=== PATIENT | female | born 1980 | race American Indian/Alaskan Native ===

== ENCOUNTER 2018-04-08 10:13 | Day surgery (SDC) | payer MEDICARE ==
[~2018-04-08 10:13] MED LIST: ANCEF/STERILE WATER 2 GM/20 ML 2 GM/20 ML SYRINGE IV NR; NACL 0.9% 1000 ML 1,000 ML IV SCH
[2018-04-08 11:09] LABS: Basophils # (Auto) 0.1 K/mm3 (0.0-0.1); Basophils % (Auto) 1.3 % (0.0-1.8); Eosinophils # (Auto) 0.2 K/mm3 (0.0-0.4); Eosinophils % (Auto) 3.4 % (0.0-4.3); Hematocrit 38.6 % (30.3-42.9); Lymphocytes # (Auto) 1.2 K/mm3 (1.2-5.4); Lymphocytes % (Auto) 23.7 % (13.4-35.0); Mean Corpuscular HGB Conc 34 % (30-34); Mean Corpuscular Volume 98 fl (79-97); Monocytes # (Auto) 0.4 K/mm3 (0.0-0.8); Monocytes % (Auto) 7.9 % (0.0-7.3); Platelet Count 151 K/mm3 (140-440); Red Blood Count 3.94 M/mm3 (3.65-5.03); Red Cell Distribution Width 12.9 % (13.2-15.2)
--- NOTE | 2018-04-08 11:23 | Anesthesia Day of Surgery ---
Anesthesia Day of Surgery - Day of Surgery Patient Examined: Yes Patient H&P Reviewed: Yes Patient is NPO: Yes
[2018-04-08 11:25] LABS: Calcium 9.4 mg/dL (8.4-10.2)
--- NOTE | 2018-04-08 11:33 | Anesthesia Consultation ---
Anesthesia Consult and Med Hx Date of service: 04/08/18 - Airway Anesthetic Teeth Evaluation: Good ROM Head & Neck: Adequate Mental/Hyoid Distance: Adequate Mallampati Class: Class IV Intubation Access Assessment: Possibly Difficult (Poor mouth opening) - Pre-Operative Health Status ASA Pre-Surgery Classification: ASA3 Proposed Anesthetic Plan: General - Pulmonary Hx Smoking: Yes Hx Asthma: No COPD: No Hx Pneumonia: No - Cardiovascular System Hx Hypertension: Yes Hx Valvular Heart Disease: Yes (Pt poor historian. ? MR) Hx Heart Murmur: Yes - Central Nervous System Hx Psychiatric Problems: Yes - Endocrine Hx Renal Disease: Yes (? etiology) Hx End Stage Renal Disease: Yes (MWF HD; Last HD yesterday; couldn't complete full session) Hx Thyroid Disease: Yes Hx Hypothyroidism: Yes Hx Hyperthyroidism: Yes (states "comes and goes") - Other Systems Hx Alcohol Use: Yes (Occas) Hx Cancer: No
[2018-04-08] MEDS: VERSED IV NR ×2 (12:09→14:18)
[2018-04-08] MEDS ORDERED: HEPARIN 10,000 UNITS/10 ML ONE ×2 (12:10→17:19)
[2018-04-08] MEDS ORDERED: MARCAINE-EPI 0.5%-1:200,000 INFILTRATI ONE ×2 (12:10→17:05)
[2018-04-08] MEDS ORDERED: NACL 0.9% 500 ML 500 ML ONE (12:11)
[2018-04-08] MEDS ORDERED: GELFOAM TP ONE ×2 (12:12→17:05)
[2018-04-08] MEDS ORDERED: THROMBIN (BOVINE) TP ONE (12:12)
[2018-04-08] MEDS ORDERED: DILAUDID ONE ×2 (14:40→16:29)
[2018-04-08] MEDS ORDERED: DIPRIVAN 10 MG/ML IV ONE ×2 (14:40→16:28)
[2018-04-08] MEDS ORDERED: XYLOCAINE MPF 2% ONE ×2 (14:40→16:29)
[2018-04-08] MEDS ORDERED: PAPAVERINE ONE (14:59)
[2018-04-08] MEDS ORDERED: PROTAMINE SULFATE ONE (14:59)
[2018-04-08] MEDS ORDERED: RIFADIN ONE (15:00)
[2018-04-08] MEDS ORDERED: SUBLIMAZE ONE (16:21)
[2018-04-08] MEDS ORDERED: HEPARIN 10,000 UNITS/10 ML IV ONE (17:05)
[2018-04-08] MEDS ORDERED: THROMBIN SPRAYKIT (BOVINE) TP ONE (17:05)
--- NOTE | 2018-04-08 18:19 | Short Stay Summary ---
Short Stay Documentation Date of service: 04/08/18 - History H&P: obtained from office - Allergies and Medications Current Medications: Allergies metoclopramide HCl [From Reglan] Adverse Reaction (Verified 04/03/18 12:38) PANIC Home Medications Medication Instructions Recorded Confirmed Last Taken Type Gabapentin [Neurontin] 200 mg PO HS 04/03/18 04/03/18 04/07/18 History Sevelamer Carbonate [Renvela] 800 mg PO TIDWM 04/03/18 04/03/18 04/07/18 History Active Medications Cefazolin Sodium (Ancef/Sterile Water 2 Gm/20 Ml) 2 gm in 20 mls @ 80 mls/hr IV PREOP NR; Protocol Stop: 04/08/18 23:01 Sodium Chloride (Nacl 0.9% 1000 Ml) 1,000 mls @ 42 mls/hr IV DIRECT CAYDEN Last Admin: 04/08/18 10:55 Dose: 42 mls/hr Documented by: Midazolam HCl (Versed) 2 mg IV PREOP NR Stop: 04/08/18 23:59 Last Admin: 04/08/18 14:18 Dose: 2 mg Documented by: - Brief post op/procedure progress note Date of procedure: 04/08/18 Pre-op diagnosis: failing AVF left arm Post-op diagnosis: same Procedure: open revision and angioplasty of LUE AVF Anesthesia: GETA, local (1/2% Marcaine with epinephrine) Findings: Excellent thrill at the end of the case Surgeon: BERNADINE DAVIS Estimated blood loss: 50-100ml Pathology: none Condition: stable - Hospital course Hospital course: Benign - Disposition Condition at discharge: Good Short Stay Discharge Plan Activity: advance as tolerated Diet: advance as tolerated Wound: per your surgeon's advice Follow up with: BERNADINE DAVIS MD [Staff Physician] - 14 Days Prescriptions: HYDROcodone/APAP 5-325 [[place] 5/325] 1 each PO Q6HR PRN #30 tablet PRN Reason: Pain
--- NOTE | 2018-04-08 18:24 | Operative Report ---
Operative Report Operative Report: Date of procedure: 04/08/2018 Pre-operative diagnosis: Arteriovenous fistula, left upper arm Post-operative diagnosis: Same Procedure name(s): 1. Open revision of left upper extremity arteriovenous fistula with thrombectomy 2. Open balloon angioplasty of left upper extremity until venous fistula using 8 mm balloon Surgeon: Ruiz Wayne MD Motor Vehicle Examiner: None Anesthesia: Gen. With local supplementation using half percent Marcaine with epinephrine EBL: Less than 50 ml Operative indication: Patient is a 37-year-old woman with a 4-year-old left upper arm fistula that has a stent near the cannulation sites. The stent is crushed at its proximal aspect. The dialysis unit cannot access the fistula adequately. Findings: The stent was extracted in significant part although is well incorporated in a lot of it had to be left. The stenotic area around the stent was easily dilated. There were no technical defects noted at the end of the procedure. Procedure: This was placed on the table in the supine position. She was given appropriate anesthesia. The area over the left arm was prepped with ChloraPrep solution and draped in the usual sterile fashion. Half percent Marcaine with epinephrine was used to infiltrate the incision sites. Small incision was made in the upper arm to the shoulder over the fistula. Dissection was carried out to identify the fistula which was surrounded with a vessel loop. An incision was made just above the elbow along the tract of the fistula. The pseudoaneurysm was identified to this incision. The arterial inflow was surrounded with a vessel loop on the fistula. The patient was given 2000 units of intravenous heparin. 3 minutes were allowed to pass. The pseudoaneurysm site was opened on its inferior portion in true vein. Once inside the fistula, the stent was easily visible. The stent was then extracted using a hemostat until the point where no more stent material was visible in the lumen. A Matti catheter was then passed proximally to remove any thrombus in the upper body of the fistula. The site was then closed with 5-0 Prolene and flow started into the fistula with the development of an immediate thrill over the body of the fistula. The arterial side of the fistula was cannulated using micropuncture technique. Ultimately a 7 [place] sheath was placed. This was all done through the incision just above the elbow. Angiography revealed some narrowing around the residual portion of the stent but the rest of the fistula appeared to be widely patent. An 8 mm balloon was then used to dilate the cannulation sites as well as the now disrupted stent. There was an excellent technical result with a widely patent lumen throughout the fistula. The 7 [place] sheath was removed and the insertion site was closed with 5-0 Prolene. Closure was done of the wounds with 3-0 Vicryl in the subcutaneous tissue and 4- 0 Monocryl on the skin. Sterile dressings were applied. The patient tolerated the procedure well. She was taken from the operating room to the recovery room in stable condition. Sponge, needle, and instrument counts were reported as correct.
[2018-04-08] MEDS ORDERED: NORCO 5/325 PO PRN (18:36)
--- NOTE | 2018-04-08 18:51 | Post Anesthesia Evaluation ---
- Post Anesthesia Evaluation Patient Participated: Yes Airway Patent: Yes Stable Respiratory Function: Yes Nausea/Vomiting: No Temp > 96.8F: Yes Pain Manageable: Yes Adequeate Hydration: Yes (Dialysis patient) Anesthesia Complications: No Block Receding Appropriately: Not Applicable Patient on Ventilator: No
[2018-04-08 20:02] VITALS: BP 125/77
== END 2018-04-08 19:40 | disposition home or self-care (01) ==
LOC: OR 10:13
PROVIDERS: ATTEND Surgery Vascular Surgery
DX: T82.868A Thrombosis due to vascular prosthetic devices, implants and grafts, initial encounter (principal); I12.0 Hypertensive chronic kidney disease with stage 5 chronic kidney disease or end stage renal disease; N18.6 End stage renal disease; I48.91 Unspecified atrial fibrillation; K21.9 Gastro-esophageal reflux disease without esophagitis; E03.9 Hypothyroidism, unspecified; F32.9 Major depressive disorder, single episode, unspecified; F17.210 Nicotine dependence, cigarettes, uncomplicated; F41.9 Anxiety disorder, unspecified; Z72.89 Other problems related to lifestyle; Z90.49 Acquired absence of other specified parts of digestive tract; Z98.51 Tubal ligation status; Z98.890 Other specified postprocedural states; Z88.8 Allergy status to other drugs, medicaments and biological substances; Z79.899 Other long term (current) drug therapy; Z86.79 Personal history of other diseases of the circulatory system; Z83.3 Family history of diabetes mellitus; Y83.8 Other surgical procedures as the cause of abnormal reaction of the patient, or of later complication, without mention of misadventure at the time of the procedure; Y92.89 Other specified places as the place of occurrence of the external cause
CPT/HCPCS: 36415; 36833; 37246; 80048; 84703; 85025; A4649; C1725; C1757; J0690; J1170; J1644; J2250; J2440; J2704; J2720; J3010; J3490; J7030; J7040; Q9966

== ENCOUNTER 2019-02-13 03:42 | Emergency (ER) | payer MEDICARE ==
[2019-02-13 07:16] LABS: Basophils % (Auto) 0.3 % (0.0-1.8); Eosinophils % (Auto) 0.3 % (0.0-4.3); Hematocrit 34.4 % (30.3-42.9); Hemoglobin 11.4 gm/dl (10.1-14.3); Lymphocytes # (Auto) 1.2 K/mm3 (1.2-5.4); Lymphocytes % (Auto) 10.6 % (13.4-35.0); Mean Corpuscular HGB Conc 33 % (30-34); Mean Corpuscular Volume 100 fl (79-97); Monocytes # (Auto) 0.9 K/mm3 (0.0-0.8); Monocytes % (Auto) 8.3 % (0.0-7.3); Platelet Count 270 K/mm3 (140-440); Red Blood Count 3.46 M/mm3 (3.65-5.03); Red Cell Distribution Width 13.4 % (13.2-15.2)
[2019-02-13 07:39] LABS: Calcium 10.6 mg/dL (8.4-10.2)
--- NOTE | 2019-02-13 08:03 | Emergency Department Report ---
ED General Adult HPI - General Chief complaint: Wound/Laceration Stated complaint: POST ABDOMEN SURGERY/BLEEDING FROM SITE Time Seen by Provider: 02/13/19 06:09 Source: patient Mode of arrival: Ambulatory Limitations: No Limitations - History of Present Illness Initial comments: This is a 38-year-old female who is switching from hemodialysis to peritoneal dialysis. She had a PD catheter placed us today in the a.m. Today she awoke with bleeding apparent from the catheter site on the dressing. It appeared to be significant and she called EMS. She was transported to this facility for further evaluation. -: Gradual Severity scale (0 -10): 0 Consistency: now resolved Associated Symptoms: denies other symptoms - Related Data Home Medications Medication Instructions Recorded Confirmed Last Taken Gabapentin 200 mg PO HS 04/03/18 04/03/18 04/07/18 Sevelamer Carbonate [Renvela] 800 mg PO TIDWM 04/03/18 04/03/18 04/07/18 Previous Rx's Medication Instructions Recorded Last Taken Type HYDROcodone/APAP 5-325 [[place] 1 each PO Q6HR PRN #30 tablet 04/08/18 Unknown Rx 5/325] Allergies Allergy/AdvReac Type Severity Reaction Status Date / Time metoclopramide HCl AdvReac PANIC Verified 04/03/18 12:38 [From [facility]] ED Review of Systems ROS: Stated complaint: POST ABDOMEN SURGERY/BLEEDING FROM SITE Other details as noted in HPI Constitutional: weakness (a little weak). denies: chills, fever Eyes: denies: eye pain, eye discharge, vision change ENT: denies: ear pain, throat pain Respiratory: denies: cough, shortness of breath, wheezing Cardiovascular: denies: chest pain, palpitations Endocrine: no symptoms reported Gastrointestinal: denies: abdominal pain, nausea, diarrhea Genitourinary: denies: urgency, dysuria, discharge Musculoskeletal: denies: back pain, joint swelling, arthralgia Skin: denies: rash, lesions Neurological: denies: headache, weakness, paresthesias Psychiatric: denies: anxiety, depression Hematological/Lymphatic: denies: easy bleeding, easy bruising ED Past Medical Hx - Past Medical History Previous Medical History?: Yes Hx Hypertension: Yes Hx Congestive Heart Failure: No Hx Diabetes: No Hx GERD: Yes (Occas) Hx Renal Disease: Yes (? etiology) Hx Asthma: No Hx COPD: No Additional medical history: HYPERTHYROID ; Leaky mitral valve - Surgical History Past Surgical History?: Yes Hx Cholecystectomy: Yes Additional Surgical History: PERMA CATH & REMOVAL. FISTULA LEFT UPPER ARM. C- SECTION, PD catheter - Social History Smoking Status: Current Every Day Smoker Substance Use Type: None - Medications Home Medications: Home Medications Medication Instructions Recorded Confirmed Last Taken Type Gabapentin 200 mg PO HS 04/03/18 04/03/18 04/07/18 History Sevelamer Carbonate [Renvela] 800 mg PO TIDWM 04/03/18 04/03/18 04/07/18 History HYDROcodone/APAP 5-325 [[place] 1 each PO Q6HR PRN #30 tablet 04/08/18 Unknown Rx 5/325] ED Physical Exam - General Limitations: No Limitations General appearance: alert, in no apparent distress - Head Head exam: Present: atraumatic, normocephalic - Eye Eye exam: Present: normal appearance. Absent: scleral icterus - ENT ENT exam: Present: mucous membranes moist - Neck Neck exam: Present: normal inspection - Respiratory Respiratory exam: Present: normal lung sounds bilaterally. Absent: respiratory distress - Cardiovascular Cardiovascular Exam: Present: regular rate, normal rhythm. Absent: systolic murmur, diastolic murmur, rubs, gallop - GI/Abdominal GI/Abdominal exam: Present: soft, normal bowel sounds, other (the catheter site is dressed. There is small to moderate amount of blood on the dressing. There is no active bleeding.). Absent: distended, tenderness, guarding, rebound, rigid - Extremities Exam Extremities exam: Present: normal inspection - Back Exam Back exam: Present: normal inspection - Neurological Exam Neurological exam: Present: alert, oriented X3, CN II-XII intact. Absent: motor sensory deficit - Psychiatric Psychiatric exam: Present: normal affect, normal mood - Skin Skin exam: Present: warm, dry, intact, normal color. Absent: rash ED Course Vital Signs 02/13/19 02/13/19 02/13/19 03:59 04:00 05:28 Temperature 98.2 F 98.2 F Pulse Rate 79 81 74 Respiratory 18 16 Rate Blood Pressure 135/80 Blood Pressure 137/87 [Right] O2 Sat by Pulse 98 99 97 Oximetry 02/13/19 06:30 Temperature 98.6 F Pulse Rate 71 Respiratory 16 Rate Blood Pressure Blood Pressure 126/90 [Right] O2 Sat by Pulse 100 Oximetry - Reevaluation(s) Reevaluation #1: Catheter was sterilely redressed. Gauze was placed. On reexamination there was just a spot of blood at the catheter site. There is no active bleeding. Laboratory database was acceptable. The patient will be referred back to her surgeon who has been paged. 02/13/19 08:06 ED Medical Decision Making - Lab Data Result diagrams: 02/13/19 06:30 02/13/19 06:30 Critical care attestation.: If time is entered above; I have spent that time in minutes in the direct care of this critically ill patient, excluding procedure time. ED Disposition Clinical Impression: Peritoneal dialysis catheter dysfunction Qualifiers: Encounter type: initial encounter Qualified Code(s): T85.611A - Breakdown (mechanical) of intraperitoneal dialysis catheter, initial encounter Disposition: DC-01 TO HOME OR SELFCARE Is pt being admited?: No Does the pt Need Aspirin: No Condition: Stable Instructions: Peritoneal Dialysis Catheter Care (ED) Additional Instructions: See your Surgery [facility] physician for follow-up. Return if any active bleeding as needed to an emergency department. Referrals: PRIMARY CAREMD [Primary Care Provider] - 3-5 Days [place] physician [Other] - [place] Time of Disposition: 08:10
[2019-02-13 10:41] VITALS: BP 122/82
== END 2019-02-13 08:30 | disposition home or self-care (01) ==
LOC: ED 03:42
DX: T82.898A Other specified complication of vascular prosthetic devices, implants and grafts, initial encounter (principal); I10 Essential (primary) hypertension; K21.9 Gastro-esophageal reflux disease without esophagitis; N28.9 Disorder of kidney and ureter, unspecified; E03.9 Hypothyroidism, unspecified; F17.200 Nicotine dependence, unspecified, uncomplicated; Z90.49 Acquired absence of other specified parts of digestive tract; Z79.899 Other long term (current) drug therapy; Z88.8 Allergy status to other drugs, medicaments and biological substances
CPT/HCPCS: 36415; 80048; 85025

== ENCOUNTER 2019-02-25 11:52 | Inpatient (IN) | payer MEDICARE ==
[2019-02-25] MEDS ORDERED: SODIUM CHLORIDE 0.9% 500 ML 500 ML IV ONE (12:09)
--- NOTE | 2019-02-25 12:09 | Event Note ---
ED Screening Note Date of service: 02/25/19 Time: 12:07 ED Screening Note: 38 y o f with recent peritoneal dialysis cathether placed x 2 weeks ago p[resents with fever x 1 dayfever 102 at home and dialysis Took tylenol LEVEL VIAL SETTER fever in triaage This initial assessment/diagnostic orders/clinical plan/treatment(s) is/are subject to change based on patients health status, clinical progression and re- assessment by fellow clinical providers in the ED. Further treatment and workup at subsequent clinical providers discretion. Patient/guardian urged not to elope from the ED as their condition may be serious if not clinically assessed and managed. Initial orders include: julius sepsis called main side eval
[2019-02-25 12:31] LABS: Basophils % (Auto) 0.5 % (0.0-1.8); Eosinophils # (Auto) 0.3 K/mm3 (0.0-0.4); Hematocrit 31.2 % (30.3-42.9); Hemoglobin 10.4 gm/dl (10.1-14.3); Lymphocytes # (Auto) 0.6 K/mm3 (1.2-5.4); Mean Corpuscular HGB Conc 33 % (30-34); Mean Corpuscular Volume 100 fl (79-97); Monocytes # (Auto) 0.7 K/mm3 (0.0-0.8); Monocytes % (Auto) 7.6 % (0.0-7.3); Platelet Count 172 K/mm3 (140-440); Red Blood Count 3.14 M/mm3 (3.65-5.03); Red Cell Distribution Width 13.9 % (13.2-15.2)
[2019-02-25 12:39] LABS: INR 1.03 (0.87-1.13)
[2019-02-25 12:47] LABS: Albumin 3.7 g/dL (3.9-5); Calcium 10.7 mg/dL (8.4-10.2)
--- NOTE | 2019-02-25 13:37 | XRay Report ---
CHEST 1 VIEW 1315 INDICATION / CLINICAL INFORMATION: possible Sepsis. COMPARISON: 08/21/2016 FINDINGS: SUPPORT DEVICES: None HEART / MEDIASTINUM: Moderate cardiomegaly LUNGS / PLEURA: Congestive changes are noted. Mild interstitial edema is seen. No definite areas of c onsolidation are noted. There probably is a minimal left pleural effusion. No pneumothorax. ADDITIONAL FINDINGS: No significant additional findings. IMPRESSION: Congestive failure Signer Name: Josafat Summers MD Signed: 02/25/2019 1:32 PM Workstation Name: [id number]
[2019-02-25] MEDS ORDERED: CEFEPIME/NS 2 GM/100 ML 2 GM/100 ML BAG IV ONE (14:28)
[2019-02-25] MEDS ORDERED: VANCOMYCIN/NS 1 GM/250 ML 1 GM/250 ML BAG IV ONE (14:28)
--- NOTE | 2019-02-25 14:34 | Emergency Department Report ---
ED Fever HPI - General Chief Complaint: Fever Stated Complaint: FEVER,BODY PAIN Time Seen by Provider: 02/25/19 14:06 Source: patient - History of Present Illness Initial Comments: 38-year-old female with end-stage renal disease presents to ED with fever since last night. Patient is on a Saturday dialysis schedule, missed dialysis on yesterday, was last dialyzed 5 days ago. Patient has an AV fistula currently in the left arm, however had PD catheter placed a couple of weeks ago by Dr Fernando at [place]. Patient reported onset of fever, chills, body aches last night. Patient reports she took Tylenol. Reports temp of 102. Patient states she was turned away from dialysis this morning due to her fever, and advised to come to the emergency room. Patient reports body aches. Denies any headache, sore throat, cough, abdominal pain, vomiting, diarrhea. Patient does reported that she noticed slight yellowish discharge on the gauze that is covering her peritoneal dialysis catheter. Nephrology: Dr Cheek Timing/Duration: yesterday Fever Severity/Quality: greater than 102 F Fever Therapy JOIST SETTER: Tylenol Associated Symptoms: muscle aches. denies: abdominal pain, chest pain, cough, headache, nausea/vomiting, shortness of breath ED Review of Systems ROS: Stated complaint: FEVER,BODY PAIN Other details as noted in HPI Comment: Unobtainable due to pts medical conditions Constitutional: chills, fever ENT: denies: throat pain Respiratory: denies: cough, shortness of breath Cardiovascular: denies: chest pain Gastrointestinal: denies: abdominal pain, vomiting, diarrhea Neurological: denies: headache ED Past Medical Hx - Past Medical History Previous Medical History?: Yes Hx Hypertension: Yes Hx Congestive Heart Failure: No Hx Diabetes: No Hx GERD: Yes (Occas) Hx Renal Disease: Yes Hx Asthma: No Hx COPD: No Additional medical history: HYPERTHYROID ; Leaky mitral valve - Surgical History Past Surgical History?: Yes Hx Cholecystectomy: Yes Additional Surgical History: PERMA CATH & REMOVAL. FISTULA LEFT UPPER ARM. C- SECTION, PD catheter - Social History Smoking Status: Current Every Day Smoker Substance Use Type: Alcohol - Medications Home Medications: Home Medications Medication Instructions Recorded Confirmed Last Taken Type Gabapentin 200 mg PO HS 04/03/18 02/25/19 02/24/19 History Sevelamer Carbonate [Renvela] 800 mg PO TIDWM 04/03/18 02/25/19 02/25/19 History HYDROcodone/APAP 5-325 [[place] 1 each PO Q6HR PRN #30 tablet 04/08/18 02/25/19 02/22/19 Rx 5/325] OLANZapine [Zyprexa] 10 mg PO QHS 02/25/19 02/25/19 02/24/19 History ED Physical Exam - General Limitations: No Limitations General appearance: alert, in no apparent distress - Head Head exam: Present: atraumatic, normocephalic - Eye Eye exam: Present: normal appearance - ENT ENT exam: Present: mucous membranes moist - Neck Neck exam: Present: normal inspection - Respiratory Respiratory exam: Present: normal lung sounds bilaterally. Absent: respiratory distress - Cardiovascular Cardiovascular Exam: Present: regular rate, normal rhythm - GI/Abdominal GI/Abdominal exam: Present: soft, distended (mildly), other (PD catheter in p lace, small amount of dried discharge around catheter against the skin, no erythema present, no tenderness to the area or to the entire abdomen ). Absent: tenderness - Extremities Exam Extremities exam: Present: normal inspection - Neurological Exam Neurological exam: Present: alert, oriented X3 - Psychiatric Psychiatric exam: Present: normal affect, normal mood - Skin Skin exam: Present: warm, dry, intact, normal color ED Course Vital Signs 02/25/19 02/25/19 02/25/19 12:03 13:50 13:58 Temperature 100.7 F H 99.4 F Pulse Rate 99 H 94 H Respiratory 16 16 Rate Blood Pressure 152/77 Blood Pressure 127/81 [Right] O2 Sat by Pulse 91 97 94 Oximetry 02/25/19 02/25/19 02/25/19 14:00 14:15 14:30 Temperature Pulse Rate 86 83 82 Respiratory 27 H 19 21 Rate Blood Pressure 128/75 128/75 126/71 Blood Pressure [Right] O2 Sat by Pulse 97 97 96 Oximetry 02/25/19 02/25/19 02/25/19 14:45 15:01 15:15 Temperature Pulse Rate 84 83 82 Respiratory 22 19 20 Rate Blood Pressure 126/71 127/85 127/85 Blood Pressure [Right] O2 Sat by Pulse 98 98 100 Oximetry 02/25/19 02/25/19 02/25/19 15:31 15:45 16:00 Temperature Pulse Rate 80 82 81 Respiratory 19 20 22 Rate Blood Pressure 131/77 131/77 127/76 Blood Pressure [Right] O2 Sat by Pulse 99 98 100 Oximetry 02/25/19 02/25/19 02/25/19 16:11 16:21 16:30 Temperature Pulse Rate 82 82 82 Respiratory 25 H 21 26 H Rate Blood Pressure 127/76 127/76 122/79 Blood Pressure [Right] O2 Sat by Pulse 100 99 99 Oximetry ED Medical Decision Making - Lab Data Result diagrams: 02/25/19 12:13 02/25/19 12:13 - EKG Data -: EKG Interpreted by Ar EKG shows normal: sinus rhythm, axis, intervals, QRS complexes Rate: normal - EKG Data Interpretation: other (T wave inversions I and aVL) - Radiology Data Radiology results: report reviewed, image reviewed - Medical Decision Making 38 yo F, ESRD, presents with fever. WBCs, lactic acid normal. Reports generalized body aches, flu testing is negative. Blood cultures sent, a ntibiotics initiated. Pt missed dialysis, CXR shows pulm edema. Spoke w/ nephrology who will dialyze pt. Pt will be admitted by hospitalist. - Differential Diagnosis pneumonia, pulm edema, hyperkalemia, flu, bacteremia Critical care attestation.: If time is entered above; I have spent that time in minutes in the direct care of this critically ill patient, excluding procedure time. ED Disposition Clinical Impression: Febrile illness, acute, Pulmonary edema, Hypoxia, ESRD needing dialysis, Hyperkalemia Disposition: OP ADMIT IP TO THIS HOSP Is pt being admited?: Yes Condition: Stable Time of Disposition: 14:50
[2019-02-25] MEDS ORDERED: ONDANSETRON 4 MG/2 ML INJ IV PRN (14:49)
[2019-02-25] MEDS ORDERED: ACETAMINOPHEN 325 MG TAB PO PRN (14:49)
--- NOTE | 2019-02-25 14:49 | Progress Note ---
Assessment and Plan Assessment and plan: Fever AV fistula ESRD yellowish discharge for HD cath SIRS suspected sepsis pulmonary edema Hospitalist Physical - Constitutional Vitals: Temp Pulse Resp BP Pulse Ox 99.4 F 94 H 16 127/81 95 02/25/19 13:58 02/25/19 13:58 02/25/19 13:58 02/25/19 13:58 02/25/19 13:58 Results - Labs CBC & Chem 7: 02/25/19 12:13 02/25/19 12:13 Labs: Laboratory Last Values WBC 9.0 K/mm3 (4.5-11.0) 02/25/19 12:13 RBC 3.14 M/mm3 (3.65-5.03) L 02/25/19 12:13 Hgb 10.4 gm/dl (10.1-14.3) 02/25/19 12:13 Hct 31.2 % (30.3-42.9) 02/25/19 12:13 MCV 100 fl (79-97) H 02/25/19 12:13 MCH 33 pg (28-32) H 02/25/19 12:13 MCHC 33 % (30-34) 02/25/19 12:13 RDW 13.9 % (13.2-15.2) 02/25/19 12:13 Plt Count 172 K/mm3 (140-440) 02/25/19 12:13 Lymph % (Auto) 7.0 % (13.4-35.0) L 02/25/19 12:13 [place] % (Auto) 7.6 % (0.0-7.3) H 02/25/19 12:13 Eos % (Auto) 3.0 % (0.0-4.3) 02/25/19 12:13 Baso % (Auto) 0.5 % (0.0-1.8) 02/25/19 12:13 Lymph # 0.6 K/mm3 (1.2-5.4) L 02/25/19 12:13 [place] # 0.7 K/mm3 (0.0-0.8) 02/25/19 12:13 Eos # 0.3 K/mm3 (0.0-0.4) 02/25/19 12:13 Baso # 0.0 K/mm3 (0.0-0.1) 02/25/19 12:13 Seg Neutrophils % 81.9 % (40.0-70.0) H 02/25/19 12:13 Seg Neutrophils # 7.4 K/mm3 (1.8-7.7) 02/25/19 12:13 PT 13.6 Sec. (12.2-14.9) 02/25/19 12:13 INR 1.03 (0.87-1.13) 02/25/19 12:13 VBG pH 7.384 (7.320-7.420) 02/25/19 12:13 Sodium 135 mmol/L (137-145) L 02/25/19 12:13 Potassium 5.3 mmol/L (3.6-5.0) H 02/25/19 12:13 Chloride 100.3 mmol/L (98-107) 02/25/19 12:13 Carbon Dioxide 18 mmol/L (22-30) L 02/25/19 12:13 Anion Gap 22 mmol/L 02/25/19 12:13 BUN 77 mg/dL (7-17) H 02/25/19 12:13 Creatinine 12.3 mg/dL (0.7-1.2) H 02/25/19 12:13 Estimated GFR 4 ml/min 02/25/19 12:13 BUN/Creatinine Ratio 6 % 02/25/19 12:13 Glucose 98 mg/dL (65-100) 02/25/19 12:13 Lactic Acid 0.70 mmol/L (0.7-2.0) 02/25/19 12:13 Calcium 10.7 mg/dL (8.4-10.2) H 02/25/19 12:13 Total Bilirubin 0.30 mg/dL (0.1-1.2) 02/25/19 12:13 AST 20 units/L (5-40) 02/25/19 12:13 ALT 18 units/L (7-56) 02/25/19 12:13 Alkaline Phosphatase 87 units/L (35-129) 02/25/19 12:13 Total Protein 7.1 g/dL (6.3-8.2) 02/25/19 12:13 Albumin 3.7 g/dL (3.9-5) L 02/25/19 12:13 Albumin/Globulin Ratio 1.1 % 02/25/19 12:13 Active Medications - Current Medications Current Medications: Generic Name Dose Route Start Last Admin Trade Name Freq PRN Reason Stop Dose Admin Vancomycin HCl 1 gm in 250 mls @ 167.007 mls/hr 02/25/19 14:28 Vancomycin/Ns 1 Gm/250 Ml IV 02/25/19 15:57 ONCE ONE Protocol Cefepime HCl 2 gm in 100 mls @ 200 mls/hr 02/25/19 14:28 Cefepime/Ns 2 Gm/100 Ml IV 02/25/19 14:57 ONCE ONE Protocol
[2019-02-25] MEDS ORDERED: VANCOMYCIN PHARMACY TO DOSE IV SCH (15:00)
[2019-02-25] MEDS ORDERED: CEFEPIME/NS 1 GM/100 ML 1 GM/100 ML BAG IV ONE (16:00)
[2019-02-25 16:40] LABS: Hepatitis B Surface Antigen Non-Reactive (Negative); Hepatitis C Virus Antibody Non-Reactive (NonReactive)
[2019-02-25 17:31] LABS: Bilirubin,Urine NEG (Negative); Blood,Urine SM (Negative); Color,Urine Straw (Yellow); Urobilinogen,Urine < 2.0 mg/dL (<2.0)
[2019-02-25] MEDS: SEVELAMER CARBONATE 800 MG TAB PO SCH (17:58)
[2019-02-25] MEDS ORDERED: SODIUM CHLORIDE 0.9% 100 ML IV PRN (18:59)
--- NOTE | 2019-02-25 19:19 | History and Physical Report ---
History of Present Illness Date of admission: 02/25/19 14:49 History of present illness: 38-year-old woman with history of end-stage renal disease who presents with fever x1 day. She receives dialysis Saturday. She missed dialysis yesterday due to the fever, last dialysis was 5 days prior. The patien t has an AV graft in her left arm however she just had a PD catheter placed [address] Harvey at [facility]. She attempted to get dialysis today, but he noted that she had a fever of 102 and then sent her to the ER. The patient describes having some purulent discharge from her PD cath however it was not observed in the ER.She denies cough, fever, dysuria or sputum production. Past Medical History: ESRD, hypertension, hypothyroidism, GERD Past Surgical History: cholecystectomy, Other (PERMA CATH & REMOVAL. FISTULA LEFT UPPER ARM. ), PD catheter placement Social history: single, Current everyday smoker. denies: alcohol abuse, prescription drug abuse Family history: hypertension Medications and Allergies Allergies Allergy/AdvReac Type Severity Reaction Status Date / Time metoclopramide HCl AdvReac PANIC Verified 04/03/18 12:38 [From Reglan] Home Medications Medication Instructions Recorded Confirmed Last Taken Type Gabapentin 200 mg PO HS 04/03/18 02/25/19 02/24/19 History Sevelamer Carbonate [Renvela] 800 mg PO TIDWM 04/03/18 02/25/19 02/25/19 History HYDROcodone/APAP 5-325 [[place] 1 each PO Q6HR PRN #30 tablet 04/08/18 02/25/19 02/22/19 Rx 5/325] OLANZapine [Zyprexa] 10 mg PO QHS 02/25/19 02/25/19 02/24/19 History Active Meds: Active Medications Acetaminophen (Tylenol) 650 mg PO Q4H PRN PRN Reason: Pain MILD(1-3)/Fever >100.5/AMADO Acetaminophen/Hydrocodone Bitart ([place] 5/325) 1 each PO Q6HR PRN PRN Reason: PAIN Enoxaparin Sodium (Enoxaparin) 30 mg SUB-Q QDAY CAYDEN Gabapentin (Gabapentin) 200 mg PO HS CAYDEN Cefepime HCl (Cefepime/Ns 1 Gm/100 Ml) 1 gm in 100 mls @ 200 mls/hr IV Q24H CAYDEN; Protocol Sodium Chloride (Nacl 0.9%) 100 mls @ 999 mls/hr IV BUFFY PRN PRN Reason: Hypotension Ondansetron HCl (Zofran) 4 mg IV Q8H PRN PRN Reason: Nausea And Vomiting Sevelamer Carbonate (Renvela) 800 mg PO TIDWM CAYDEN Last Admin: 02/25/19 17:58 Dose: Not Given Documented by: Sodium Chloride (Sodium Chloride Flush Syringe 10 Ml) 10 ml IV BID CAYDEN Sodium Chloride (Sodium Chloride Flush Syringe 10 Ml) 10 ml IV PRN PRN PRN Reason: LINE FLUSH Review of Systems All systems: negative Constitutional: fever Exam - Constitutional Vitals: Temp Pulse Resp BP Pulse Ox 99.8 F H 83 18 145/91 98 02/25/19 17:15 02/25/19 17:15 02/25/19 17:15 02/25/19 17:15 02/25/19 17:15 General appearance: Present: no acute distress, well-nourished - EENT Eyes: Present: PERRL ENT: hearing intact, clear oral mucosa - Neck Neck: Present: supple, normal ROM - Respiratory Respiratory effort: normal Respiratory: bilateral: CTA - Cardiovascular Heart Sounds: Present: S1 & S2. Absent: rub, click - Extremities Extremities: pulses symmetrical, No edema Peripheral Pulses: within normal limits - Abdominal General gastrointestinal: Present: soft, non-tender, non-distended, normal bowel sounds Female genitourinary: Present: normal - Integumentary Integumentary: Present: clear, warm, dry - Musculoskeletal Musculoskeletal: gait normal, strength equal bilaterally - Psychiatric Psychiatric: appropriate mood/affect, intact judgment & insight - Neurologic Neurologic: CNII-XII intact, moves all extremities Results - Labs CBC & Chem 7: 02/25/19 12:13 02/25/19 12:13 Labs: Laboratory Last Values WBC 9.0 K/mm3 (4.5-11.0) 02/25/19 12:13 RBC 3.14 M/mm3 (3.65-5.03) L 02/25/19 12:13 Hgb 10.4 gm/dl (10.1-14.3) 02/25/19 12:13 Hct 31.2 % (30.3-42.9) 02/25/19 12:13 MCV 100 fl (79-97) H 02/25/19 12:13 MCH 33 pg (28-32) H 02/25/19 12:13 MCHC 33 % (30-34) 02/25/19 12:13 RDW 13.9 % (13.2-15.2) 02/25/19 12:13 Plt Count 172 K/mm3 (140-440) 02/25/19 12:13 Lymph % (Auto) 7.0 % (13.4-35.0) L 02/25/19 12:13 [place] % (Auto) 7.6 % (0.0-7.3) H 02/25/19 12:13 Eos % (Auto) 3.0 % (0.0-4.3) 02/25/19 12:13 Baso % (Auto) 0.5 % (0.0-1.8) 02/25/19 12:13 Lymph # 0.6 K/mm3 (1.2-5.4) L 02/25/19 12:13 [place] # 0.7 K/mm3 (0.0-0.8) 02/25/19 12:13 Eos # 0.3 K/mm3 (0.0-0.4) 02/25/19 12:13 Baso # 0.0 K/mm3 (0.0-0.1) 02/25/19 12:13 Seg Neutrophils % 81.9 % (40.0-70.0) H 02/25/19 12:13 Seg Neutrophils # 7.4 K/mm3 (1.8-7.7) 02/25/19 12:13 PT 13.6 Sec. (12.2-14.9) 02/25/19 12:13 INR 1.03 (0.87-1.13) 02/25/19 12:13 VBG pH 7.384 (7.320-7.420) 02/25/19 12:13 Sodium 135 mmol/L (137-145) L 02/25/19 12:13 Potassium 5.3 mmol/L (3.6-5.0) H 02/25/19 12:13 Chloride 100.3 mmol/L (98-107) 02/25/19 12:13 Carbon Dioxide 18 mmol/L (22-30) L 02/25/19 12:13 Anion Gap 22 mmol/L 02/25/19 12:13 BUN 77 mg/dL (7-17) H 02/25/19 12:13 Creatinine 12.3 mg/dL (0.7-1.2) H 02/25/19 12:13 Estimated GFR 4 ml/min 02/25/19 12:13 BUN/Creatinine Ratio 6 % 02/25/19 12:13 Glucose 98 mg/dL (65-100) 02/25/19 12:13 Lactic Acid 0.70 mmol/L (0.7-2.0) 02/25/19 15:47 Calcium 10.7 mg/dL (8.4-10.2) H 02/25/19 12:13 Total Bilirubin 0.30 mg/dL (0.1-1.2) 02/25/19 12:13 AST 20 units/L (5-40) 02/25/19 12:13 ALT 18 units/L (7-56) 02/25/19 12:13 Alkaline Phosphatase 87 units/L (35-129) 02/25/19 12:13 Total Protein 7.1 g/dL (6.3-8.2) 02/25/19 12:13 Albumin 3.7 g/dL (3.9-5) L 02/25/19 12:13 Albumin/Globulin Ratio 1.1 % 02/25/19 12:13 Urine Color Straw (Yellow) 02/25/19 17:00 Urine Turbidity Clear (Clear) 02/25/19 17:00 Urine pH 6.0 (5.0-7.0) 02/25/19 17:00 Ur Specific [place] 1.008 (1.003-1.030) 02/25/19 17:00 Urine Protein 30 mg/dl mg/dL (Negative) 02/25/19 17:00 Urine Glucose (UA) 50 mg/dL (Negative) 02/25/19 17:00 Urine Ketones Neg mg/dL (Negative) 02/25/19 17:00 Urine Blood Sm (Negative) 02/25/19 17:00 Urine Nitrite Neg (Negative) 02/25/19 17:00 Urine Bilirubin Neg (Negative) 02/25/19 17:00 Urine Urobilinogen < 2.0 mg/dL (<2.0) 02/25/19 17:00 Ur Leukocyte Esterase Neg (Negative) 02/25/19 17:00 Urine WBC (Auto) 1.0 /HPF (0.0-6.0) 02/25/19 17:00 Urine RBC (Auto) 3.0 /HPF (0.0-6.0) 02/25/19 17:00 U Epithel Cells (Auto) 6.0 /HPF (0-13.0) 02/25/19 17:00 Hepatitis A IgM Ab Non-reactive (NonReactive) 02/25/19 15:47 Hep Bs Antigen Non-reactive (Negative) 02/25/19 15:47 Hep B Core IgM Ab Non-reactive (NonReactive) 02/25/19 15:47 Hepatitis C Antibody Non-reactive (NonReactive) 02/25/19 15:47 Influenza A (Rapid) Negative (Negative) 02/25/19 Unknown Influenza B (Rapid) Negative (Negative) 02/25/19 Unknown Assessment and Plan Assessment and plan: 38-year-old woman with end-stage renal disease on hemodialysis who had recent placement of peritoneal dialysis catheter a few months ago. Presents with fever x1 day. At this point the patient has not started peritoneal dialysis Chest x-ray; pulmonary edema Fever Sirs Suspected sepsis -IV antibiotics, ID consult -Patient reports had some mucopurulent discharge from her peritoneal catheter, will obtain CT abdomen and pelvis End-stage renal disease/hyperkalemia, missed HD Dialysis per nephrology Fluid overload/pulmonary edema Fluid removal per dialysis Preventative health counseling performed for 17 minutes DVT prophylaxis renally dosed Lovenox
--- NOTE | 2019-02-25 20:23 | Consultation ---
History of Present Illness - Reason for Consult Consult date: 02/25/19 end stage renal disease - History of Present Illness Mrs. Lou is a 38-year-old female w/ ESRD on HD qMWF who presented to the ED with history of fever. She reports onset of fever, chills last night. She presented to the dialysis clinic and was advised to go to the ED. Of note, patient is s/p recent PD catheter insertion. She denies abdominal pain, nausea and vomiting. Past History Past Medical History: anemia, ESRD Past Surgical History: Other (AVF creation, PD catheter insertion) Social history: no significant social history Family history: no significant family history Medications and Allergies Allergies Allergy/AdvReac Type Severity Reaction Status Date / Time metoclopramide HCl AdvReac PANIC Verified 04/03/18 12:38 [From [facility]] Home Medications Medication Instructions Recorded Confirmed Last Taken Type Gabapentin 200 mg PO HS 04/03/18 02/25/19 02/24/19 History Sevelamer Carbonate [Renvela] 800 mg PO TIDWM 04/03/18 02/25/19 02/25/19 History HYDROcodone/APAP 5-325 [[place] 1 each PO Q6HR PRN #30 tablet 04/08/18 02/25/19 02/22/19 Rx 5/325] OLANZapine [Zyprexa] 10 mg PO QHS 02/25/19 02/25/19 02/24/19 History Active Meds: Active Medications Acetaminophen (Tylenol) 650 mg PO Q4H PRN PRN Reason: Pain MILD(1-3)/Fever >100.5/AMADO Acetaminophen/Hydrocodone Bitart ([place] 5/325) 1 each PO Q6HR PRN PRN Reason: PAIN Enoxaparin Sodium (Enoxaparin) 30 mg SUB-Q QDAY CAYDEN Gabapentin (Gabapentin) 200 mg PO HS CAYDEN Cefepime HCl (Cefepime/Ns 1 Gm/100 Ml) 1 gm in 100 mls @ 200 mls/hr IV Q24H CAYDEN; Protocol Sodium Chloride (Nacl 0.9%) 100 mls @ 999 mls/hr IV BUFFY PRN PRN Reason: Hypotension Ondansetron HCl (Zofran) 4 mg IV Q8H PRN PRN Reason: Nausea And Vomiting Sevelamer Carbonate (Renvela) 800 mg PO TIDWM [facility] Last Admin: 02/25/19 17:58 Dose: Not Given Documented by: Sodium Chloride (Sodium Chloride Flush Syringe 10 Ml) 10 ml IV BID CAYDEN Sodium Chloride (Sodium Chloride Flush Syringe 10 Ml) 10 ml IV PRN PRN PRN Reason: LINE FLUSH Review of Systems All systems: negative Exam - Vital Signs Vital signs: Vital Signs Temp Pulse Resp BP Pulse Ox 100.7 F H 99 H 16 152/77 91 02/25/19 12:03 02/25/19 12:03 02/25/19 12:03 02/25/19 12:03 02/25/19 12:03 - General Appearance General appearance: well-developed, well-nourished EENT: ATNC Respiratory: Clear to Ascultation Heart: regular, S1S2 Gastrointestinal: Present: normal. Absent: tenderness, distended Integumentary: no rash, warm and dry Neurologic: no focal deficit Musculoskeletal: Present: other (no edema) Psychiatric: cooperative Results - Lab Results 02/25/19 12:13 02/25/19 12:13 Most recent lab results Calcium 10.7 mg/dL (8.4-10.2) H 02/25/19 12:13 Assessment and Plan Impression * End stage renal disease * Fever r/o bacteremia * Hyperkalemia, mild * Metabolic acidosis * Anemia secondary to ESRD * Secondary hyperparathyroidism Plan * Hemodialysis today as patient last dialyzed on 02/20 * UF as tolerated * Blood cx collected and pending * Empiric abx * Dose medications for renal function * Avoid potential nephrotoxins
[2019-02-25] MEDS ORDERED: CEFEPIME/NS 1 GM/100 ML 1 GM/100 ML BAG IV SCH (22:00)
[2019-02-25] MEDS: HYDROcodone/ACETAMINOPHEN 5-325 MG TAB PO PRN (23:54)
[2019-02-25] MEDS: GABAPENTIN 100 MG CAP PO SCH (23:54)
--- NOTE | 2019-02-26 08:03 | Progress Note ---
Assessment and Plan Assessment and plan: Patient is a 38-year-old woman with history of end-stage renal disease who presents with fever x1 day. She receives dialysis Saturday. She missed dialysis yesterday due to the fever, last dialysis was 5 days prior. The patient has an AV graft in her left arm however she just had a PD catheter placed [address] Harvey at [facility]. She attempted to get dialysis today, but he noted that she had a fever of 102 and then sent her to the ER. The patient describes having some purulent discharge from her PD cath however it was not observed in the ER. She denies cough, fever, dysuria or sputum production. * pChest x-ray Impression: CHF Fever Sirs Suspected sepsis -IV antibiotics, ID consult -Patient reports had some mucopurulent discharge from her peritoneal catheter, will obtain CT abdomen and pelvis, still pending End-stage renal disease/hyperkalemia, missed HD Dialysis per nephrology Fluid overload/pulmonary edema, most likely acute on chronic diastolic heart failure, poa Fluid removal per dialysis patient says she does have a history of CHF ECHO ordered DVT prophylaxis sq heparin History Interval history: Patient was seen and examined. Follow-up on current diagnosis FEVERs. Overnight uneventful as no events directly reported to me. Patient denies any chest pain, shortness breath, nausea/vomiting or severe headaches. Imaging, nursing note, chart, labs and old chart reviewed. Discussed with patient. She admits to missing Saturday because she had something to do. Counseling done Hospitalist Physical - Physical exam Narrative exam: Gen: WDWN, NAD, Awake, Alert, Orientated HEENT: NCAT, EOMI, PERRL, OP Clear Neck: supple, no adenopathy, no thyromegaly, no JVD CVS/Heart: RRR, normal S1S2, pulses present bilaterally Chest/Lungs: CTA B, Symmetrical chest expansion, good air entry bilaterally GI/Abdomen: soft, left tenderness near PD catheter, good bowel sounds, no guarding or rebound /Bladder: no suprapubic tenderness, no CVA or paraspinal tenderness Extermity/Skin: no c/c/e, no obvious rash MSK: FROM x 4 Neuro: CN 2-12 grossly intact, no new focal deficits Psych: calm - Constitutional Vitals: Temp Pulse Resp BP Pulse Ox 98.7 F 84 20 122/61 91 02/26/19 05:14 02/26/19 05:14 02/26/19 05:14 02/26/19 05:14 02/26/19 05:14 General appearance: Present: no acute distress, well-nourished Results - Labs CBC & Chem 7: 02/25/19 12:13 02/25/19 12:13 Labs: Laboratory Last Values WBC 9.0 K/mm3 (4.5-11.0) 02/25/19 12:13 RBC 3.14 M/mm3 (3.65-5.03) L 02/25/19 12:13 Hgb 10.4 gm/dl (10.1-14.3) 02/25/19 12:13 Hct 31.2 % (30.3-42.9) 02/25/19 12:13 MCV 100 fl (79-97) H 02/25/19 12:13 MCH 33 pg (28-32) H 02/25/19 12:13 MCHC 33 % (30-34) 02/25/19 12:13 RDW 13.9 % (13.2-15.2) 02/25/19 12:13 Plt Count 172 K/mm3 (140-440) 02/25/19 12:13 Lymph % (Auto) 7.0 % (13.4-35.0) L 02/25/19 12:13 [place] % (Auto) 7.6 % (0.0-7.3) H 02/25/19 12:13 Eos % (Auto) 3.0 % (0.0-4.3) 02/25/19 12:13 Baso % (Auto) 0.5 % (0.0-1.8) 02/25/19 12:13 Lymph # 0.6 K/mm3 (1.2-5.4) L 02/25/19 12:13 [place] # 0.7 K/mm3 (0.0-0.8) 02/25/19 12:13 Eos # 0.3 K/mm3 (0.0-0.4) 02/25/19 12:13 Baso # 0.0 K/mm3 (0.0-0.1) 02/25/19 12:13 Seg Neutrophils % 81.9 % (40.0-70.0) H 02/25/19 12:13 Seg Neutrophils # 7.4 K/mm3 (1.8-7.7) 02/25/19 12:13 PT 13.6 Sec. (12.2-14.9) 02/25/19 12:13 INR 1.03 (0.87-1.13) 02/25/19 12:13 VBG pH 7.384 (7.320-7.420) 02/25/19 12:13 Sodium 135 mmol/L (137-145) L 02/25/19 12:13 Potassium 5.3 mmol/L (3.6-5.0) H 02/25/19 12:13 Chloride 100.3 mmol/L (98-107) 02/25/19 12:13 Carbon Dioxide 18 mmol/L (22-30) L 02/25/19 12:13 Anion Gap 22 mmol/L 02/25/19 12:13 BUN 77 mg/dL (7-17) H 02/25/19 12:13 Creatinine 12.3 mg/dL (0.7-1.2) H 02/25/19 12:13 Estimated GFR 4 ml/min 02/25/19 12:13 BUN/Creatinine Ratio 6 % 02/25/19 12:13 Glucose 98 mg/dL (65-100) 02/25/19 12:13 Lactic Acid 0.70 mmol/L (0.7-2.0) 02/25/19 15:47 Calcium 10.7 mg/dL (8.4-10.2) H 02/25/19 12:13 Total Bilirubin 0.30 mg/dL (0.1-1.2) 02/25/19 12:13 AST 20 units/L (5-40) 02/25/19 12:13 ALT 18 units/L (7-56) 02/25/19 12:13 Alkaline Phosphatase 87 units/L (35-129) 02/25/19 12:13 Total Protein 7.1 g/dL (6.3-8.2) 02/25/19 12:13 Albumin 3.7 g/dL (3.9-5) L 02/25/19 12:13 Albumin/Globulin Ratio 1.1 % 02/25/19 12:13 Urine Color Straw (Yellow) 02/25/19 17:00 Urine Turbidity Clear (Clear) 02/25/19 17:00 Urine pH 6.0 (5.0-7.0) 02/25/19 17:00 Ur Specific [place] 1.008 (1.003-1.030) 02/25/19 17:00 Urine Protein 30 mg/dl mg/dL (Negative) 02/25/19 17:00 Urine Glucose (UA) 50 mg/dL (Negative) 02/25/19 17:00 Urine Ketones Neg mg/dL (Negative) 02/25/19 17:00 Urine Blood Sm (Negative) 02/25/19 17:00 Urine Nitrite Neg (Negative) 02/25/19 17:00 Urine Bilirubin Neg (Negative) 02/25/19 17:00 Urine Urobilinogen < 2.0 mg/dL (<2.0) 02/25/19 17:00 Ur Leukocyte Esterase Neg (Negative) 02/25/19 17:00 Urine WBC (Auto) 1.0 /HPF (0.0-6.0) 02/25/19 17:00 Urine RBC (Auto) 3.0 /HPF (0.0-6.0) 02/25/19 17:00 U Epithel Cells (Auto) 6.0 /HPF (0-13.0) 02/25/19 17:00 Hepatitis A IgM Ab Non-reactive (NonReactive) 02/25/19 15:47 Hep Bs Antigen Non-reactive (Negative) 02/25/19 15:47 Hep B Core IgM Ab Non-reactive (NonReactive) 02/25/19 15:47 Hepatitis C Antibody Non-reactive (NonReactive) 02/25/19 15:47 Influenza A (Rapid) Negative (Negative) 02/25/19 Unknown Influenza B (Rapid) Negative (Negative) 02/25/19 Unknown Active Medications - Current Medications Current Medications: Generic Name Dose Route Start Last Admin Trade Name Freq PRN Reason Stop Dose Admin Acetaminophen 650 mg 02/25/19 14:49 Tylenol PO Q4H PRN Pain MILD(1-3)/Fever >100.5/AMADO Acetaminophen/Hydrocodone [place] 1 each 02/25/19 14:51 02/25/19 23:54 [place] 5/325 PO 1 each Q6HR PRN Administration PAIN Enoxaparin Sodium 30 mg 02/26/19 10:00 Enoxaparin SUB-Q QDAY CAYDEN Gabapentin 200 mg 02/25/19 22:00 02/25/19 23:54 Gabapentin PO 200 mg HS CAYDEN Administration Cefepime HCl 1 gm in 100 mls @ 200 mls/hr 02/26/19 15:00 Cefepime/Ns 1 Gm/100 Ml IV Q24H CAYDEN Protocol Sodium Chloride 100 mls @ 999 mls/hr 02/25/19 18:59 Nacl 0.9% IV BUFFY PRN Hypotension Ondansetron HCl 4 mg 02/25/19 14:49 Zofran IV Q8H PRN Nausea And Vomiting Sevelamer Carbonate 800 mg 02/25/19 17:00 02/25/19 17:58 Renvela PO Not Given TIDWM CAYDEN Sodium Chloride 10 ml 02/25/19 22:00 02/25/19 23:56 Sodium Chloride Flush Syringe 10 Ml IV 10 ml BID CAYDEN Administration Sodium Chloride 10 ml 02/25/19 14:49 Sodium Chloride Flush Syringe 10 Ml IV PRN PRN LINE FLUSH
[2019-02-26] MEDS: SEVELAMER CARBONATE 800 MG TAB PO SCH ×3 (08:41→18:07)
[2019-02-26] MEDS ORDERED: ENOXAPARIN 30 MG/0.3 ML INJ SUB-Q SCH (10:00)
[2019-02-26] MEDS ORDERED: cephALEXin 500 MG CAP PO SCH (11:00)
[2019-02-26] MEDS ORDERED: levoFLOXacin 500 MG TAB PO SCH (11:00)
--- NOTE | 2019-02-26 14:22 | Cat Scan Report ---
CT ABDOMEN AND PELVIS WITHOUT CONTRAST INDICATION: possible peritoneal catheter infection r/o abscess CONTRAST: Without IV COMPARISON: None available. All CT scans at this location are performed using CT dose reduction for ALARA by means of automated e xposure control. FINDINGS: Lung bases show diffuse increased interstitial markings which likely represents pulmonary e felix although some could be chronic. Heart is prominently enlarged. Small pericardial effusion is not ed. Minimal bilateral pleural effusions are seen. No pneumoperitoneum is seen. No significant abdominal wall herniation is noted. The peritoneal dialys is catheter enters the abdomen to the left of the umbilicus and extends inferiorly to coil in the pel vis. Small amount of peritoneal fluid is seen, more in the pelvis, likely related to the dialysis pro cedures. I do not see an organized collection to suggest an abscess. Just to the right of the uterine fundus is a small cystic area measuring 17 mm which probably is a physiologic ovarian cyst. No focal inflammatory changes are seen. Gallbladder has been removed. No biliary dilatation is seen. No lymph adenopathy is noted. No evidence of bowel obstruction is seen. Mild colonic diverticulosis is noted w ithout evidence of diverticulitis. Appendix appears within normal limits. Both kidneys show moderate atrophic changes and small probable cysts. No urinary tract calculi or evidence of obstruction are se en. Urinary bladder shows no significant abnormalities and no ureteral abnormalities are seen. IMPRESSION: 1. Peritoneal dialysis catheter position appears appropriate. There is no evidence of abscess formati on. No definite acute abnormalities are seen in the abdomen or pelvis. 2. Cardiomegaly and probable congestive failure with evidence of interstitial pulmonary edema in the lung bases. Signer Name: Josafat Summers MD Signed: 02/26/2019 2:17 PM Workstation Name: [id number]
--- NOTE | 2019-02-26 14:26 | Consultation ---
History of Present Illness - Reason for Consult Consult date: 02/26/19 Sepsis, ESRD Requesting physician: MANUEL ADDISON - History of Present Illness The patient is a 68-year-old female with ESRD on hemodialysis who missed her session on Saturday last week came into the emergency room today with complaints of fever, body aches not feeling well and gaining new years Samantha. He had a fever of 102F at home, had another fever at dialysis so she was sent to the ER and w as hospitalized. Also mild cough and congestion which is chronic for her which she attributes to smoking. Otherwise denies any nausea, vomiting. Denies any urinary burning. Did not take the flu shot this year. Within the last few months, she had a PD catheter placed but has not started PD yet. She also thought that she had slight purulent drainage at her PD catheter exit site, but currently it is clean. Review of Systems: General: + for fever HEENT: no new visual disturbance Respiratory: mild cough, no sputum, hemoptysis or shortness of breath Cardiovascular: No chest pain, syncope Gastrointestinal: No nausea, vomiting or diarrhea Genitourinary: No dysuria or hematuria Musculoskeletal: No new or worsening neck pain or back pain. Bodyaches + Neurologic: No headaches, seizures Hematologic: No easy bruising or bleeding Endocrine: No night sweats or acute weight loss Skin: negative for rash, jaundice Psychiatric: No suicidal or homicidal ideation Past History Past Medical History: anemia, ESRD Past Surgical History: Other (AVF creation, PD catheter insertion) Social history: no significant social history Family history: no significant family history Medications and Allergies Allergies Allergy/AdvReac Type Severity Reaction Status Date / Time metoclopramide HCl AdvReac PANIC Verified 04/03/18 12:38 [From Reglan] Home Medications Medication Instructions Recorded Confirmed Last Taken Type Gabapentin 200 mg PO HS 04/03/18 02/25/19 02/24/19 History Sevelamer Carbonate [Renvela] 800 mg PO TIDWM 04/03/18 02/25/19 02/25/19 History HYDROcodone/APAP 5-325 [[place] 1 each PO Q6HR PRN #30 tablet 04/08/18 02/25/19 02/22/19 Rx 5/325] OLANZapine [Zyprexa] 10 mg PO QHS 02/25/19 02/25/19 02/24/19 History Active Meds: Active Medications Acetaminophen (Tylenol) 650 mg PO Q4H PRN PRN Reason: Pain MILD(1-3)/Fever >100.5/AMADO Acetaminophen/Hydrocodone Bitart ([place] 5/325) 1 each PO Q6HR PRN PRN Reason: PAIN Last Admin: 02/25/19 23:54 Dose: 1 each Documented by: Cephalexin (Keflex) 250 mg PO Q12HR [facility] Gabapentin (Gabapentin) 200 mg PO HS [facility] Last Admin: 02/25/19 23:54 Dose: 200 mg Documented by: Heparin Sodium (Porcine) (Heparin) 5,000 unit SUB-Q Q12HR [facility] Cefepime HCl (Cefepime/Ns 1 Gm/100 Ml) 1 gm in 100 mls @ 200 mls/hr IV Q24H [facility]; Protocol Sodium Chloride (Nacl 0.9%) 100 mls @ 999 mls/hr IV [facility]FFY PRN PRN Reason: Hypotension Levofloxacin (Levaquin) 500 mg PO Q48H [facility] Last Admin: 02/26/19 13:21 Dose: 500 mg Documented by: Ondansetron HCl (Zofran) 4 mg IV Q8H PRN PRN Reason: Nausea And Vomiting Sevelamer Carbonate (Renvela) 800 mg PO TIDWM [facility] Last Admin: 02/26/19 12:44 Dose: 800 mg Documented by: Sodium Chloride (Sodium Chloride Flush Syringe 10 Ml) 10 ml IV BID [facility] Last Admin: 02/26/19 10:47 Dose: 10 ml Documented by: Sodium Chloride (Sodium Chloride Flush Syringe 10 Ml) 10 ml IV PRN PRN PRN Reason: LINE FLUSH Physical Examination - Physical Exam Narrative exam: Physical Exam: Constitutional: Alert, cooperative. No acute distress Head, Ears, Nose: Normocephalic, atraumatic. External ears, nose normal Eyes: Conjunctivae/corneas clear. No icterus. No ptosis. Neck: Supple, no meningeal signs Oral: no thrush Cardiovascular: S1, S2 normal. Respiratory: few scattered rhonchi + GI: Soft, non-tender; bowel sounds normal. No peritoneal signs. PD cath exit site is clean. Musculoskeletal: No pedal edema, no cyanosis. Left arm AVF with thrill, non tender Skin: No rash or abscess Hem/Lymphatic: No palpable cervical or supraclavicular nodes. No lymphangitis Psych: Mood ok. Affect normal Neurological: Awake, alert, oriented. No gross abnormality - Constitutional Vitals: Vital Signs Temp Pulse Resp BP Pulse Ox 99.7 F H 79 22 124/71 91 02/26/19 11:52 02/26/19 11:52 02/26/19 11:52 02/26/19 11:52 02/26/19 11:52 Temperature -Last 24 Hours Temperature 99.7 F Temperature 98.7 F Temperature 100.1 F Temperature 98.0 F Temperature 98.2 F Temperature 99.8 F Results - Labs CBC & Chem 7: 02/25/19 12:13 02/25/19 12:13 - Imaging and Cardiology Chest x-ray: report reviewed, image reviewed (CXR with mild central congestion) Assessment and Plan Cultures: 02/25/2019 blood culture: In process 02/25/2019 urine culture: In process Rapid Influenza: negative A/P: 68-year-old female with ESRD on hemodialysis admitted with: #Fever, bodyaches: no obvious source. #ESRD on HD: renally dose abx Recs: rule out bacteremia continue empiric cefepime, vancomycin IV renally adjusted for now Flu PCR ordered f/u CT abdomen pelvis results Shayna Vivas MD, FACP [facility] C: [phone] O: [phone] F: [phone]
[2019-02-26] MEDS: cephALEXin 250 MG CAP PO SCH ×2 (14:28→21:36)
[2019-02-26] MEDS ORDERED: CEFEPIME/NS 1 GM/100 ML 1 GM/100 ML BAG IV SCH (15:00)
--- NOTE | 2019-02-26 16:07 | Progress Note ---
Assessment and Plan - Patient Problems (1) ESRD needing dialysis Current Visit: Yes Status: Acute Plan to address problem: end-stage renal disease continue hemodialysis was dialyzed overnight (2) Febrile illness, acute Current Visit: Yes Status: Acute Plan to address problem: cute febrile illness. cultures are pending. possible peritoneal dialysis exit site infection. CAT scan was reviewedwithout evidence of any abscess at the peritoneal dialysis exit site e'll add. hase generation cephalosporin Cephalexin 500 mg twice a day2 weeksas well as [id number] mg every 48 hours for gram-negative coverage (3) Hyperkalemia Current Visit: Yes Status: Acute Plan to address problem: hyperkalemia, received dialysis overnight (4) Accelerated hypertension Current Visit: No Status: Acute Plan to address problem: Accelerated hypertension CONTINUE HYPERTENSIVE MEDICATIONS Subjective Interval history: 38-year-old lady with medical history significant for end-stage renal disease on hemodialysis admitted with complaints of fevers, chills following missed dialysis he is status post recent placementof a PD catheter reports she has had dressing changes however, noticed some yellowish discharge at the exit sites patient denies any shortness of breath has been started on empiric antibiotics Cultures are pending Objective - Vital Signs Vital signs: Vital Signs - 12hr 02/26/19 02/26/19 05:14 11:52 Temperature 98.7 F 99.7 F H Pulse Rate 84 79 Respiratory 20 22 Rate Blood Pressure 122/61 124/71 O2 Sat by Pulse 91 91 Oximetry - General Appearance General appearance: well-developed, well-nourished EENT: ATNC, PERRL Neck: no JVD Respiratory: Present: Clear to Ascultation Cardiology: regular, S1S2 Gastrointestinal: normal, normoactive bowel sounds Integumentary: no rash Neurologic: alert and oriented x3, CN 3-12 intact Psychiatric: mood/affect appropriate - Lab 02/25/19 12:13 02/25/19 12:13 Most recent lab results Calcium 10.7 mg/dL (8.4-10.2) H 02/25/19 12:13 - Imaging Chest x-ray: image reviewed (i reviewed chest x-ray) Medications & Allergies - Medications Allergies/Adverse Reactions: Allergies metoclopramide HCl [From Reglan] Adverse Reaction (Verified 04/03/18 12:38) PANIC Home Medications: Home Medications Medication Instructions Recorded Confirmed Last Taken Type Gabapentin 200 mg PO HS 04/03/18 02/25/19 02/24/19 History Sevelamer Carbonate [Renvela] 800 mg PO TIDWM 04/03/18 02/25/19 02/25/19 History HYDROcodone/APAP 5-325 [[place] 1 each PO Q6HR PRN #30 tablet 04/08/18 02/25/19 02/22/19 Rx 5/325] OLANZapine [Zyprexa] 10 mg PO QHS 02/25/19 02/25/19 02/24/19 History Active Medications: Generic Name Dose Route Start Last Admin Trade Name Freq PRN Reason Stop Dose Admin Acetaminophen 650 mg 02/25/19 14:49 Tylenol PO Q4H PRN Pain MILD(1-3)/Fever >100.5/AMADO Acetaminophen/Hydrocodone Bitart 1 each 02/25/19 14:51 02/25/19 23:54 [place] 5/325 PO 1 each Q6HR PRN Administration PAIN Cephalexin 250 mg 02/26/19 13:00 02/26/19 14:28 Keflex PO 250 mg Q12HR [facility] Administration Gabapentin 200 mg 02/25/19 22:00 02/25/19 23:54 Gabapentin PO 200 mg HS [facility] Administration Heparin Sodium (Porcine) 5,000 unit 02/27/19 10:00 Heparin SUB-Q Q12HR [facility] Cefepime HCl 1 gm in 100 mls @ 200 mls/hr 02/26/19 15:00 02/26/19 14:27 Cefepime/Ns 1 Gm/100 Ml IV 200 mls/hr Q24H [facility] Administration Protocol Sodium Chloride 100 mls @ 999 mls/hr 02/25/19 18:59 Nacl 0.9% IV [facility] PRN Hypotension Levofloxacin 500 mg 02/26/19 11:00 02/26/19 13:21 Levaquin PO 500 mg Q48H [facility] Administration Ondansetron HCl 4 mg 02/25/19 14:49 Zofran IV Q8H PRN Nausea And Vomiting Sevelamer Carbonate 800 mg 02/25/19 17:00 02/26/19 12:44 Renvela PO 800 mg TIDWM [facility] Administration Sodium Chloride 10 ml 02/25/19 22:00 02/26/19 10:47 Sodium Chloride Flush Syringe 10 Ml IV 10 ml BID [facility] Administration Sodium Chloride 10 ml 02/25/19 14:49 Sodium Chloride Flush Syringe 10 Ml IV PRN PRN LINE FLUSH
[2019-02-26] MEDS: GABAPENTIN 100 MG CAP PO SCH (21:36)
[2019-02-26] MEDS: HYDROcodone/ACETAMINOPHEN 5-325 MG TAB PO PRN (21:47)
[2019-02-27] MEDS: SEVELAMER CARBONATE 800 MG TAB PO SCH ×2 (08:00→13:39)
--- NOTE | 2019-02-27 08:53 | Progress Note ---
Assessment and Plan Assessment and plan: Patient is a 38-year-old woman with history of end-stage renal disease who presents with fever x1 day. She receives dialysis Saturday. She missed dialysis yesterday due to the fever, last dialysis was 5 days prior. The patient has an AV graft in her left arm however she just had a PD catheter placed [address] Harvey at [facility]. She attempted to get dialysis today, but he noted that she had a fever of 102 and then sent her to the ER. The patient describes having some purulent discharge from her PD cath however it was not observed in the ER. She denies cough, fever, dysuria or sputum production. * pChest x-ray Impression: CHF * CT abd/pelvis without IMPRESSION: 1. Peritoneal dialysis catheter position appears appropriate. There is no evidence of abscess formation. No definite acute abnormalities are seen in the abdomen or pelvis. 2. Cardiomegaly and pro bable congestive failure with evidence of interstitial pulmonary edema in the lung bases. Fever Sirs Suspected sepsis -IV antibiotics, ID consult, input noted -Patient reports had some mucopurulent discharge from her peritoneal catheter, will obtain CT abdomen and pelvis, as above -urine culture negative -blood culture negative > 24 hours End-stage renal disease/hyperkalemia, missed HD Dialysis per nephrology Fluid overload/pulmonary edema, most likely acute on chronic diastolic heart failure, poa Fluid removal per dialysis patient says she does have a history of CHF ECHO ordered and done but pending DVT prophylaxis sq heparin d/c after Hemodialysis if ECHO doesn't show severe CMP History Interval history: Patient was seen and examined. Follow-up on current diagnosis FEVERs. Overnight uneventful as no events directly reported to me. Patient denies any chest pain, shortness breath, nausea/vomiting or severe headaches. Imaging, nursing note, chart, labs and old chart reviewed. Discussed with patient. She admits to missing hemodialysis Saturday because she had something to do. Counseling done Hospitalist Physical - Physical exam Narrative exam: Gen: WDWN, NAD, Awake, Alert, Orientated HEENT: NCAT, EOMI, PERRL, OP Clear Neck: supple, no adenopathy, no thyromegaly, no JVD CVS/Heart: RRR, normal S1S2, pulses present bilaterally Chest/Lungs: CTA B, Symmetrical chest expansion, good air entry bilaterally GI/Abdomen: soft, left tenderness near PD catheter, good bowel sounds, no guarding or rebound /Bladder: no suprapubic tenderness, no CVA or paraspinal tenderness Extermity/Skin: no c/c/e, no obvious rash MSK: FROM x 4 Neuro: CN 2-12 grossly intact, no new focal deficits Psych: calm - Constitutional Vitals: Temp Pulse Resp BP Pulse Ox 97.6 F 69 16 121/72 97 02/27/19 04:53 02/27/19 04:53 02/27/19 04:53 02/27/19 04:53 02/27/19 04:53 General appearance: Present: no acute distress, well-nourished Results - Labs CBC & Chem 7: 02/25/19 12:13 02/25/19 12:13 Labs: Laboratory Last Values WBC 9.0 K/mm3 (4.5-11.0) 02/25/19 12:13 RBC 3.14 M/mm3 (3.65-5.03) L 02/25/19 12:13 Hgb 10.4 gm/dl (10.1-14.3) 02/25/19 12:13 Hct 31.2 % (30.3-42.9) 02/25/19 12:13 MCV 100 fl (79-97) H 02/25/19 12:13 MCH 33 pg (28-32) H 02/25/19 12:13 MCHC 33 % (30-34) 02/25/19 12:13 RDW 13.9 % (13.2-15.2) 02/25/19 12:13 Plt Count 172 K/mm3 (140-440) 02/25/19 12:13 Lymph % (Auto) 7.0 % (13.4-35.0) L 02/25/19 12:13 [place] % (Auto) 7.6 % (0.0-7.3) H 02/25/19 12:13 Eos % (Auto) 3.0 % (0.0-4.3) 02/25/19 12:13 Baso % (Auto) 0.5 % (0.0-1.8) 02/25/19 12:13 Lymph # 0.6 K/mm3 (1.2-5.4) L 02/25/19 12:13 [place] # 0.7 K/mm3 (0.0-0.8) 02/25/19 12:13 Eos # 0.3 K/mm3 (0.0-0.4) 02/25/19 12:13 Baso # 0.0 K/mm3 (0.0-0.1) 02/25/19 12:13 Seg Neutrophils % 81.9 % (40.0-70.0) H 02/25/19 12:13 Seg Neutrophils # 7.4 K/mm3 (1.8-7.7) 02/25/19 12:13 PT 13.6 Sec. (12.2-14.9) 02/25/19 12:13 INR 1.03 (0.87-1.13) 02/25/19 12:13 VBG pH 7.384 (7.320-7.420) 02/25/19 12:13 Sodium 135 mmol/L (137-145) L 02/25/19 12:13 Potassium 5.3 mmol/L (3.6-5.0) H 02/25/19 12:13 Chloride 100.3 mmol/L (98-107) 02/25/19 12:13 Carbon Dioxide 18 mmol/L (22-30) L 02/25/19 12:13 Anion Gap 22 mmol/L 02/25/19 12:13 BUN 77 mg/dL (7-17) H 02/25/19 12:13 Creatinine 12.3 mg/dL (0.7-1.2) H 02/25/19 12:13 Estimated GFR 4 ml/min 02/25/19 12:13 BUN/Creatinine Ratio 6 % 02/25/19 12:13 Glucose 98 mg/dL (65-100) 02/25/19 12:13 Lactic Acid 0.70 mmol/L (0.7-2.0) 02/25/19 15:47 Calcium 10.7 mg/dL (8.4-10.2) H 02/25/19 12:13 Total Bilirubin 0.30 mg/dL (0.1-1.2) 02/25/19 12:13 AST 20 units/L (5-40) 02/25/19 12:13 ALT 18 units/L (7-56) 02/25/19 12:13 Alkaline Phosphatase 87 units/L (35-129) 02/25/19 12:13 Total Protein 7.1 g/dL (6.3-8.2) 02/25/19 12:13 Albumin 3.7 g/dL (3.9-5) L 02/25/19 12:13 Albumin/Globulin Ratio 1.1 % 02/25/19 12:13 Urine Color Straw (Yellow) 02/25/19 17:00 Urine Turbidity Clear (Clear) 02/25/19 17:00 Urine pH 6.0 (5.0-7.0) 02/25/19 17:00 Ur Specific [place] 1.008 (1.003-1.030) 02/25/19 17:00 Urine Protein 30 mg/dl mg/dL (Negative) 02/25/19 17:00 Urine Glucose (UA) 50 mg/dL (Negative) 02/25/19 17:00 Urine Ketones Neg mg/dL (Negative) 02/25/19 17:00 Urine Blood Sm (Negative) 02/25/19 17:00 Urine Nitrite Neg (Negative) 02/25/19 17:00 Urine Bilirubin Neg (Negative) 02/25/19 17:00 Urine Urobilinogen < 2.0 mg/dL (<2.0) 02/25/19 17:00 Ur Leukocyte Esterase Neg (Negative) 02/25/19 17:00 Urine WBC (Auto) 1.0 /HPF (0.0-6.0) 02/25/19 17:00 Urine RBC (Auto) 3.0 /HPF (0.0-6.0) 02/25/19 17:00 U Epithel Cells (Auto) 6.0 /HPF (0-13.0) 02/25/19 17:00 Hepatitis A IgM Ab Non-reactive (NonReactive) 02/25/19 15:47 Hep Bs Antigen Non-reactive (Negative) 02/25/19 15:47 Hep B Core IgM Ab Non-reactive (NonReactive) 02/25/19 15:47 Hepatitis C Antibody Non-reactive (NonReactive) 02/25/19 15:47 Influenza A (Rapid) Negative (Negative) 02/25/19 Unknown Influenza A (RT-PCR) Negative (Negative) 02/26/19 Unknown Influenza B (Rapid) Negative (Negative) 02/25/19 Unknown Influenza B (RT-PCR) Negative (Negative) 02/26/19 Unknown Active Medications - Current Medications Current Medications: Generic Name Dose Route Start Last Admin Trade Name Freq PRN Reason Stop Dose Admin Acetaminophen 650 mg 02/25/19 14:49 Tylenol PO Q4H PRN Pain MILD(1-3)/Fever >100.5/AMADO Acetaminophen/Hydrocodone [place] 1 each 02/25/19 14:51 02/26/19 21:47 [place] 5/325 PO 1 each Q6HR PRN Administration PAIN Cephalexin 250 mg 02/26/19 13:00 02/26/19 21:36 Keflex PO 250 mg Q12HR [facility] Administration Gabapentin 200 mg 02/25/19 22:00 02/26/19 21:36 Gabapentin PO 200 mg HS [facility] Administration Heparin Sodium (Porcine) 5,000 unit 02/27/19 10:00 Heparin SUB-Q Q12HR [facility] Cefepime HCl 1 gm in 100 mls @ 200 mls/hr 02/26/19 15:00 02/26/19 14:27 Cefepime/Ns 1 Gm/100 Ml IV 200 mls/hr Q24H [facility] Administration Protocol Sodium Chloride 100 mls @ 999 mls/hr 02/25/19 18:59 Nacl 0.9% IV [facility]FFY PRN Hypotension Levofloxacin 500 mg 02/26/19 11:00 02/26/19 13:21 Levaquin PO 500 mg Q48H [facility] Administration Ondansetron HCl 4 mg 02/25/19 14:49 Zofran IV Q8H PRN Nausea And Vomiting Sevelamer Carbonate 2,400 mg 02/27/19 07:30 Renvela PO AC [facility] Sodium Chloride 10 ml 02/25/19 22:00 02/26/19 21:36 Sodium Chloride Flush Syringe 10 Ml IV 10 ml BID [facility] Administration Sodium Chloride 10 ml 02/25/19 14:49 Sodium Chloride Flush Syringe 10 Ml IV PRN PRN LINE FLUSH
[2019-02-27] MEDS ORDERED: HEPARIN 5,000 UNIT/1 ML VIAL SUB-Q SCH (10:00)
--- NOTE | 2019-02-27 10:28 | Progress Note ---
Assessment and Plan - Patient Problems (1) ESRD needing dialysis Current Visit: Yes Status: Acute Plan to address problem: end-stage renal disease continue hemodialysis was dialyzed overnight (2) Febrile illness, acute Current Visit: Yes Status: Acute Plan to address problem: Acute febrile illness. cultures are pending. possible peritoneal dialysis exit site infection. CAT scan was reviewedwithout evidence of any abscess at the peritoneal dialysis exit site Continue Cephalexin 500 mg twice a day2 weeks as well as levofloxacin 500 mg every 48 hours for gram-negative coverage (3) Hyperkalemia Current Visit: Yes Status: Acute Plan to address problem: hyperkalemia, resolved We'll repeat dialysis today (4) Accelerated hypertension Current Visit: No Status: Acute Plan to address problem: Accelerated hypertension CONTINUE HYPERTENSIVE MEDICATIONS Subjective Interval history: 38-year-old lady with medical history significant for end-stage renal disease on hemodialysis admitted with complaints of fevers, chills following missed dialysis he is status post recent placementof a PD catheter reports she has had dressing changes however, noticed some yellowish discharge at the exit sites patient denies any shortness of breath has been started on empiric antibiotics for coverage of peritoneal dialysis exit site infection CT negative for abscess Blood cultures are currently negative Objective - Vital Signs Vital signs: Vital Signs - 12hr 02/27/19 02/27/19 02/27/19 04:53 08:35 08:47 Temperature 97.6 F 97.6 F Pulse Rate 69 72 73 Respiratory 16 16 Rate Blood Pressure 121/72 143/91 139/89 O2 Sat by Pulse 97 Oximetry 02/27/19 02/27/19 02/27/19 09:00 09:15 09:30 Temperature Pulse Rate 72 69 73 Respiratory Rate Blood Pressure 145/85 134/86 138/81 O2 Sat by Pulse Oximetry 02/27/19 09:45 Temperature Pulse Rate 73 Respiratory Rate Blood Pressure 126/82 O2 Sat by Pulse Oximetry - General Appearance General appearance: well-developed, well-nourished EENT: ATNC, PERRL Neck: no JVD Respiratory: Present: Clear to Ascultation Cardiology: regular, S1S2 Gastrointestinal: normal, normoactive bowel sounds Integumentary: no rash Neurologic: no focal deficit, alert and oriented x3 Psychiatric: mood/affect appropriate - Lab 02/25/19 12:13 02/25/19 12:13 Most recent lab results Calcium 10.7 mg/dL (8.4-10.2) H 02/25/19 12:13 - Imaging CT scan - abdomen: image reviewed (CT abdomen without any abscess collection aspirated not dialysis exit site) Medications & Allergies - Medications Allergies/Adverse Reactions: Allergies metoclopramide HCl [From Reglan] Adverse Reaction (Verified 04/03/18 12:38) PANIC Home Medications: Home Medications Medication Instructions Recorded Confirmed Last Taken Type Gabapentin 200 mg PO HS 04/03/18 02/25/19 02/24/19 History Sevelamer Carbonate [Renvela] 800 mg PO TIDWM 04/03/18 02/25/19 02/25/19 History HYDROcodone/APAP 5-325 [[place] 1 each PO Q6HR PRN #30 tablet 04/08/18 02/25/19 02/22/19 Rx 5/325] OLANZapine [Zyprexa] 10 mg PO QHS 02/25/19 02/25/19 02/24/19 History Active Medications: Generic Name Dose Route Start Last Admin Trade Name Freq PRN Reason Stop Dose Admin Acetaminophen 650 mg 02/25/19 14:49 Tylenol PO Q4H PRN Pain MILD(1-3)/Fever >100.5/AMADO Acetaminophen/Hydrocodone [place] 1 each 02/25/19 14:51 02/26/19 21:47 [place] 5/325 PO 1 each Q6HR PRN Administration PAIN Cephalexin 250 mg 02/26/19 13:00 02/26/19 21:36 Keflex PO 250 mg Q12HR [facility] Administration Gabapentin 200 mg 02/25/19 22:00 02/26/19 21:36 Gabapentin PO 200 mg HS [facility] Administration Heparin Sodium (Porcine) 5,000 unit 02/27/19 10:00 Heparin SUB-Q Q12HR [facility] Cefepime HCl 1 gm in 100 mls @ 200 mls/hr 02/26/19 15:00 02/26/19 14:27 Cefepime/Ns 1 Gm/100 Ml IV 200 mls/hr Q24H [facility] Administration Protocol Sodium Chloride 100 mls @ 999 mls/hr 02/25/19 18:59 Nacl 0.9% IV [facility] PRN Hypotension Levofloxacin 500 mg 02/26/19 11:00 02/26/19 13:21 Levaquin PO 500 mg Q48H [facility] Administration Ondansetron HCl 4 mg 02/25/19 14:49 Zofran IV Q8H PRN Nausea And Vomiting Sevelamer Carbonate 2,400 mg 02/27/19 07:30 Renvela PO AC [facility] Sodium Chloride 10 ml 02/25/19 22:00 02/26/19 21:36 Sodium Chloride Flush Syringe 10 Ml IV 10 ml BID [facility] Administration Sodium Chloride 10 ml 02/25/19 14:49 Sodium Chloride Flush Syringe 10 Ml IV PRN PRN LINE FLUSH
--- NOTE | 2019-02-27 13:19 | Discharge Summary ---
Providers - Providers Date of Admission: 02/25/19 14:49 Date of discharge: 02/27/19 Attending physician: BURAK GUILLORY 02/25/19 14:43 Consult to Physician [CONS] Stat Comment: Consulting Provider: GISSELLE SHAY Physician Instructions: Reason For Exam: dialysis 02/25/19 14:52 Consult to Physician [CONS] Routine Comment: Consulting Provider: ADAMA ROSALES Physician Instructions: Reason For Exam: sepsis, esrd Primary care physician: [facility] Hospitalization Condition: Stable Hospital course: Patient is a 38-year-old woman with history of end-stage renal disease who presents with fever x1 day. She receives dialysis Saturday. She missed dialysis yesterday due to the fever, last dialysis was 5 days prior. The patient has an AV graft in her left arm however she just had a PD catheter placed [address] Harvey at [facility]. She attempted to get dialysis today, but he noted that she had a fever of 102 and then sent her to the ER. The patient describes having some purulent discharge from her PD cath however it was not observed in the ER. She denies cough, fever, dysuria or sputum production. * pChest x-ray Impression: CHF * CT abd/pelvis without IMPRESSION: 1. Peritoneal dialysis catheter position appears appropriate. There is no evidence of abscess formation. No definite acute abnormalities are seen in the abdomen or pelvis. 2. Cardiomegaly and probable congestive failure with evidence of interstitial pulmonary edema in the lung bases. Fever Suspected Sepsis due to abd wall cellulitis -IV antibiotics, ID consult, input noted -Patient reports had some mucopurulent discharge from her peritoneal catheter, will obtain CT abdomen and pelvis, as above -urine culture negative -blood culture negative > 24 hours Abdominal wall cellulitis near PD site, no peritionitis Continue Cephalexin 500 mg twice a day2 weeks as well as levofloxacin 500 mg every 48 hours for gram-negative coverage per Nephrology End-stage renal disease/hyperkalemia, missed HD Dialysis per nephrology counseling department chair on compliance Fluid overload/pulmonary edema, most likely acute on chronic diastolic heart failure, poa Fluid removal per dialysis patient says she does have a history of CHF ECHO reviewed DVT prophylaxis sq heparin Disposition: TO HOME OR SELFCARE Time spent for discharge: 34 minutes Core Measure Documentation - Palliative Care Palliative Care/ Comfort Measures: Not Applicable - Core Measures Any of the following diagnoses?: none - VTE Discharge Requirements Deep Vein Thrombosis/Pulmonary Embolism Present on Admission: No Has pt received <5 days of overlap therapy or INR<2.0: No Anticoagulant overlap therapy prescribed at discharge: No Contraindication No Overlap Therapy order at DC: Not Indicated Exam - Physical Exam Narrative exam: Gen: WDWN, NAD, Awake, Alert, Orientated HEENT: NCAT, EOMI, PERRL, OP Clear Neck: supple, no adenopathy, no thyromegaly, no JVD CVS/Heart: RRR, normal S1S2, pulses present bilaterally Chest/Lungs: CTA B, Symmetrical chest expansion, good air entry bilaterally GI/Abdomen: soft, left tenderness near PD catheter, good bowel sounds, no guarding or rebound /Bladder: no suprapubic tenderness, no CVA or paraspinal tenderness Extermity/Skin: no c/c/e, no obvious rash MSK: FROM x 4 Neuro: CN 2-12 grossly intact, no new focal deficits Psych: calm - Constitutional Vitals: Temp Pulse Resp BP Pulse Ox 98.3 F 79 18 122/72 97 02/27/19 12:20 02/27/19 12:20 02/27/19 12:20 02/27/19 12:20 02/27/19 04:53 Plan Activity: other (no strenous activity unless cleared by PCP) Diet: renal Follow up with: GISSELLE SHAY MD [Staff Physician] - 7 Days NICKY GALVAN MD [Staff Physician] - 7 Days Prescriptions: RX: cephALEXin [Keflex] 250 mg PO Q12HR #20 capsule RX: levoFLOXacin [Levaquin TAB] 500 mg PO Q48H #14 tablet
[2019-02-27] MEDS: cephALEXin 250 MG CAP PO SCH (13:43)
--- NOTE | 2019-02-27 13:50 | Progress Note ---
Assessment and Plan Cultures: 02/25/2019 blood culture: no growth 02/25/2019 urine culture: skin nuha Influenza: negative A/P: 68-year-old female with ESRD on hemodialysis admitted with: #Fever, bodyaches: no obvious source. Bacteremia ruled out. Influenza PCR negative. No current evidence of exit site infection. CT abdomen pelvis unremarkable for infectious etiology. #ESRD on HD: renally dose abx. got dialysis. Recs: OK for discharge from ID standpoint PO abx per nephrology d/w Dr. Chavez. Shayna Vivas MD, FACP [facility] ([facility]) C: [phone] O: [phone] F: [phone] Subjective Date of service: 02/27/19 Interval history: No fever. Feels well. Eating. No abdominal pain. Got CT done yesterday. Objective - Exam Narrative Exam: Physical Exam: Constitutional: Alert, cooperative. No acute distress Head, Ears, Nose: Normocephalic, atraumatic. External ears, nose normal Eyes: Conjunctivae/corneas clear. No icterus. No ptosis. Neck: Supple, no meningeal signs Oral: no thrush Cardiovascular: S1, S2 normal. Respiratory: clear to auscultation b/l GI: Soft, non-tender; bowel sounds normal. No peritoneal signs. PD cath exit sit e is clean. Musculoskeletal: No pedal edema, no cyanosis. Left arm AVF with thrill, non tender Skin: No rash or abscess Hem/Lymphatic: No palpable cervical or supraclavicular nodes. No lymphangitis Psych: Mood ok. Affect normal Neurological: Awake, alert, oriented. No gross abnormality - Constitutional Vitals: Vital Signs Temp Pulse Resp BP Pulse Ox 98.3 F 79 18 122/72 97 02/27/19 12:20 02/27/19 12:20 02/27/19 12:20 02/27/19 12:20 02/27/19 04:53 Temperature -Last 24 Hours Temperature 98.3 F Temperature 97.6 F Temperature 97.6 F Temperature 98.8 F Temperature 99.2 F - Labs CBC & Chem 7: 02/25/19 12:13 02/25/19 12:13 - Imaging and cardiology CT scan - abdomen: report reviewed, image reviewed (no obvious infectious etiology identified)
[2019-02-27 14:24] VITALS: BP 121/69
== END 2019-02-27 14:44 | disposition home or self-care (01) | DRG 871 ==
LOC: ED 11:52 → 3A 14:49
PROVIDERS: ADMIT Internal Medicine; ATTEND Internal Medicine
PROC: 5A1D70Z Performance of Urinary Filtration, Intermittent, Less than 6 Hours Per Day (ICD-10-PCS; principal; 2019-02-25)
PROC: 5A1D70Z Performance of Urinary Filtration, Intermittent, Less than 6 Hours Per Day (ICD-10-PCS; 2019-02-27)
DX: A41.9 Sepsis, unspecified organism (principal); N18.6 End stage renal disease; I50.33 Acute on chronic diastolic (congestive) heart failure; I13.2 Hypertensive heart and chronic kidney disease with heart failure and with stage 5 chronic kidney disease, or end stage renal disease; N25.81 Secondary hyperparathyroidism of renal origin; L03.311 Cellulitis of abdominal wall; E87.5 Hyperkalemia; K21.9 Gastro-esophageal reflux disease without esophagitis; E03.9 Hypothyroidism, unspecified; D63.1 Anemia in chronic kidney disease; E87.70 Fluid overload, unspecified; F17.210 Nicotine dependence, cigarettes, uncomplicated; Z71.6 Tobacco abuse counseling; Z99.2 Dependence on renal dialysis; Z90.49 Acquired absence of other specified parts of digestive tract; Z82.49 Family history of ischemic heart disease and other diseases of the circulatory system; Z88.8 Allergy status to other drugs, medicaments and biological substances
CPT/HCPCS: 36415; 71045; 74176; 80053; 80074; 81001; 82140; 82805; 85025; 85610; 87040; 87086; 87400; 93005; 93010; 93306; 96360; 99406; G0378; 87502; J0692; J1644; J3370

== ENCOUNTER 2019-10-07 09:49 | Outpatient (CLI) | payer MEDICARE ==
--- NOTE | 2019-10-07 13:34 | Cat Scan Report ---
CT ABDOMEN AND PELVIS WITH CONTRAST INDICATION / CLINICAL INFORMATION: N28.1 RENAL CYST/N83.29 OVARIAN CYST. TECHNIQUE: Axial CT images were obtained through the abdomen and pelvis after IV contrast. All CT scans at this location are performed using CT dose reduction for ALARA by means of automated exposure control. COMPARISON: 02/26/2019 FINDINGS: LOWER CHEST: No significant abnormality. LIVER: No significant abnormality. GALLBLADDER: Cholecystectomy. BILE DUCTS: No significant abnormality. PANCREAS: No significant abnormality. SPLEEN: No significant abnormality. ADRENALS: No significant abnormality. RIGHT KIDNEY / URETER: Simple renal cyst. LEFT KIDNEY / URETER: Multiple left-sided simple renal cysts. STOMACH / SMALL BOWEL: Small hiatal hernia. COLON: No significant abnormality. APPENDIX: No significant abnormality. PERITONEUM: Minimal simple free fluid No free air. No fluid collection. Peritoneal dialysis catheter is now noted with its tip in the right lower quadrant of the abdomen. LYMPH NODES: No significant adenopathy. AORTA / ARTERIES: No significant abnormality. IVC / VEINS: No significant abnormality. URINARY BLADDER: No significant abnormality. REPRODUCTIVE ORGANS: The uterus is anteverted. Dominant ovarian follicle noted on the right. ADDITIONAL FINDINGS: None. SKELETAL SYSTEM: No significant abnormality. IMPRESSION: 1. No evidence of acute abdominopelvic abnormality. 2. Peritoneal dialysis catheter is again noted now with its tip curled in the right lower quadrant ab domen. 3. Minimal simple peritoneal fluid. 4. Cholecystectomy. Signer Name: Husam Chowdhury MD Signed: 10/07/2019 1:30 PM Workstation Name: [id number]
== END 2019-10-07 09:50 | disposition home or self-care (01) ==
LOC: CT 09:49
PROVIDERS: ATTEND Internal Medicine Nephrology
DX: N28.1 Cyst of kidney, acquired (principal); K44.9 Diaphragmatic hernia without obstruction or gangrene; Z90.49 Acquired absence of other specified parts of digestive tract
CPT/HCPCS: 36415; 74177; 82565; 84520; Q9967